=== PATIENT | male | born 1985 | race Caucasian/White ===

== ENCOUNTER 2016-10-20 13:52 | Day surgery (SDC) | payer BC ==
[~2016-10-20] VITALS: Ht 175.3 cm; Wt 74.0 kg
[2016-10-20] MEDS ORDERED: LACTATED RINGERS 1,000 ML IV SCH (14:33)
[2016-10-20 14:44] VITALS: BP 143/76
[2016-10-20] MEDS ORDERED: FENTANYL PF 250 MCG/5ML ONE (15:07)
[2016-10-20] MEDS ORDERED: MIDAZOLAM 1 MG/ML, 2ML ONE (15:07)
[2016-10-20] MEDS ORDERED: BUPIVACAINE/PF 0.25% ONE (15:11)
[2016-10-20] MEDS ORDERED: BUPIVACAINE/PF 0.5% ONE (15:11)
[2016-10-20] MEDS ORDERED: GLYCOPYRROLATE 0.2MG/1ML ONE (16:19)
[2016-10-20] MEDS ORDERED: ONDANSETRON 2MG/ML, 2ML ONE (16:19)
[2016-10-20] MEDS ORDERED: METOCLOPRAMIDE 5 MG/ML, 2ML ONE (16:19)
[2016-10-20] MEDS ORDERED: DEXAMETHASONE 4 MG/ML, 1ML ONE (16:19)
[2016-10-20] MEDS ORDERED: CEFAZOLIN 1,000 MG ONE (16:19)
[2016-10-20] MEDS ORDERED: PROPOFOL 10 MG/ML, 20ML ONE (16:19)
[2016-10-20] MEDS ORDERED: ONDANSETRON 2MG/ML, 2ML IVPush PRN (17:00)
[2016-10-20] MEDS ORDERED: LABETALOL 5MG/ML, 20ML IV PRN (17:00)
[2016-10-20] MEDS ORDERED: PROMETHAZINE 25 MG/ML, 1ML IV PRN (17:00)
[2016-10-20] MEDS ORDERED: MEPERIDINE/PF 25MG/0.5ML IVPush PRN (17:00)
[2016-10-20] MEDS ORDERED: HYDROmorphone 1 MG/ML, 1ML IV PRN (17:00)
[2016-10-20] MEDS ORDERED: MIDAZOLAM 1 MG/ML, 2ML IV PRN (17:00)
[2016-10-20] MEDS ORDERED: OXYcodone 5 MG/5 ML ORAL.SOL UDC PO PRN (17:00)
[2016-10-20] MEDS ORDERED: FENTANYL PF 100 MCG/2ML IV PRN (17:00)
[2016-10-20] MEDS ORDERED: hydrALAzine 20 MG/ML, 1ML IV PRN (17:00)
[2016-10-20] MEDS ORDERED: OXYcodone 5 MG/5 ML ORAL.SOL UDC ONE (18:18)
== END 2016-10-20 18:40 | disposition home or self-care (01) ==
LOC: OUT 13:52
PROVIDERS: ATTEND Orthopaedic Surgery
DX: S93.325A Dislocation of tarsometatarsal joint of left foot, initial encounter (principal); Z72.89 Other problems related to lifestyle; W16.42XA Fall into unspecified water causing other injury, initial encounter; Y93.9 Activity, unspecified; Y92.9 Unspecified place or not applicable; Y99.9 Unspecified external cause status
CPT/HCPCS: 28615; 73630; 76000; C1713; J0690; J1100; J2250; J2405; J2704; J2765; J3010; J3490; J7120; 76001